=== PATIENT | female | born 1940 | race Caucasian/White ===

== ENCOUNTER 2018-09-06 05:28 | Day surgery (SDC) | payer OTHER ==
[~2018-09-06] VITALS: Ht 170.2 cm; Wt 67.1 kg
[~2018-09-06 05:28] MED LIST: ESTRADIOL42.5 GM VAG; FOSAMAX 70 MG T70 M1 PO; FOSAMAX 70 MG T70 MG PO; GLUCOSAMINE CH1 EAC7 PO; MAXALT MLT ODT10 M1 PO; NASONEX17 GM NASAL; NORCO 5-325 TA1 EACH PO; PANTANASE; PROBIOTIC1 EAC3 PO; PROMS25 WY RECTAL; VERAMYST10 GM SPRAY; VITAMIN D1000 UNI1 PO; VITAMINC500 PO
[2018-09-06 06:33] VITALS: BP 114/80
--- NOTE | 2018-09-06 07:15 | H ---
[facility] [place] [address] HISTORY AND PHYSICAL Name: EVI JUAREZ Room #: 150-6 [facility]..#: [id number] Admission: 09/06/18 ������������������ Attend Phys: Dario Abdi MD Discharge: ������������������ Date of : 44 Report #: [id number] THIS REPORT FOR: //name// CC: Tao Abdi Physician staff ANTICIPATED DATE OF SURGERY: 09/06/2018. CHIEF COMPLAINT: Recurrent qyrnz-nx-csncfrr sinusitis. HISTORY OF PRESENT ILLNESS: This is a 77-year-old female with a long-standing history of chronic rhinosinusitis, having had multiple sinus surgeries in the past. She had been doing relatively well, having last been seen in 05/2016, at which time, she was found to have somewhat unstable examination. She returned in 04/2018 with wodwk-ha-gxgppwk rhinosinusitis with some worsening appearance to her nasal anatomy. She seemed to do relatively well until July of this year, when she began to experience a one-month history of daily frontal sinus pressure and headaches. She did seem to get some relief with her anti-inflammatories and migraine medicines, but a CT scan was obtained at that time. CT scans noted substantial opacification of the ethmoids and the frontal sinuses. Based on this, she was treated with several-week history of oral antibiotics along with oral steroids. Her symptoms recurred rather rapidly on completion of therapy, so she was placed on another 3-week course of therapy with a followup CT scan. The followup CT scan did show some level of improvement in the maxillary sinuses and the ethmoid disease on the left, but still had rather substantial left frontal sinusitis. I discussed the roles of continued medical management versus revision of sinus surgery and she, at that point, initially decided not wanting to pursue sinus surgery, but then later on changed her mind and wishes to pursue revision surgery at this time. Plan will be for revision sinus surgery, as noted above. ALLERGIES TO MEDICATION: None. MEDICATIONS ON ADMISSION: Alprazolam 0.5 mg once a day, estradiol vaginal cream as needed, Flonase nasal steroid spray, oxybutynin chloride 5 mg daily, Pulmicort inhaler on a p.r.n. basis, rizatriptan 10 mg tablet once a day as needed for headache and zolpidem 5 mg once a day. PAST MEDICAL AND SURGICAL HISTORY: Above-mentioned sinus surgery along with hysterectomy. FAMILY HISTORY: Noncontributory. REVIEW OF SYSTEMS: Otherwise, unremarkable aside from the above-mentioned headache history. [address] [address] HISTORY AND PHYSICAL Name: EVI JUAREZ Room #: [address] [place] [address] M.R.#: [id number] Admission: 09/06/18 ������������������ Attend Phys: Dario Abdi MD Discharge: ������������������ Date of : 44 Report #: [id number] PHYSICAL EXAMINATION: VITAL SIGNS: Height of 5 feet 4 inches, weight of 150 pounds. HEENT: Notable for polyposis noted mostly in the left ethmoid defect, more patent appearance to the right nasal ethmoid area. Oral cavity and oropharynx appear to be unremarkable. ASSESSMENT: History of recurrent rhinosinusitis. PLAN: Plan will be for revision endoscopic sinus surgery, left and right ethmoid and frontal regions, possible balloon frontal sinuplasty. ��������������������������������������������� <ELECTRONICALLY SIGNED> ���������������������������������������� By: Dario Abdi MD ��������������������������������������������� 09/06/18 0715 1145 1212 Dario Abdi MD /nt
--- NOTE | 2018-09-10 13:08 | PATH ---
[facility] [address] [place] [address] PATHOLOGY RPT PROCEDURE Name: ALISIA JUAREZ Room #: DEP [facility]..#: [id number] ������������������ Admission: 09/06/18 ������������������ Date of : 44 Discharge: 09/06/18 Report #: [id number] Path Case #: [id number] [facility] Accession Number: [id number] . 01 Material submitted: . BILATERAL SINUS CONTENTS . 01 Clinical history: . Chronic sinusitis . 02 Diagnosis: Bilateral sinus contents: - Moderate dense chronic inflammation. - No increase in eosinophils within the infiltrate. - Fragments of reactive bone. (IUV:adryan; 09/09/2018) QMS/09/09/2018 . 02 Electronically signed: . Chitra Monterroso MD, Pathologist NPI- [id number] . 01 Gross description: . The specimen is received in formalin, labeled "Alisia Juarez, bilateral sinus contents". Received are multiple segments of pale black membranous tissue admixed with minute fragments of possible bone and blood coagulum measuring 1.5 x 0.9 x 0.1 cm in aggregate dimensions. The specimen is filtered and entirely submitted in cassette A1, following light decalcification. (CAA; 09/06/2018) QAC/QAC . 02 Pathologist provided ICD-10: J32.9 . 02 CPT . 685134, 368439 Specimen Comment: A courtesy copy of this report has been sent to Specimen Comment: [phone], . Specimen Comment: Report sent to / DR SUE Performed at: [address] [id number] MD Todd Lind MD Phone: [phone] Performed at: [address] [id number] [address] [address] PATHOLOGY RPT PROCEDURE Name: ALISIA JUAREZ Room #: [place] [facility] [place]#: [id number] ������������������ Admission: 09/06/18 ������������������ Date of : 42 Discharge: 09/06/18 Report #: [id number] Path Case #: [id number] MD Chitra Monterroso MD Phone: [phone]
--- NOTE | 2018-09-13 07:25 | O ---
[facility] [place] [address] OPERATIVE REPORT Name: EVI JUAREZ Room #: DEP [facility]..#: [id number] Admission: 09/06/18 ������������������ Attend Phys: Dario Abdi MD Discharge: 09/06/18 ������������������ Date of : 44 Report #: [id number] THIS REPORT FOR: //name// CC: Tao Abdi Physician staff DATE OF SERVICE: 09/06/2018 PREOPERATIVE DIAGNOSES: Frontal sinusitis, ethmoid sinusitis, nasal polyps. POSTOPERATIVE DIAGNOSES: Frontal sinusitis, ethmoid sinusitis, nasal polyps. PROCEDURE: 1. Revision endoscopic right ethmoidectomy. 2. Right frontal sinus exploration with frontal sinus balloon sinuplasty. 3. Placement of a contour stent. 4. Left frontal sinus exploration with frontal sinus dilation and placement of a contour stent. 5. Zipongo image guidance system usage. FINDINGS: Moderate polyposis is noted around the anterior left ethmoid/agger nasi cell obstructing and obscuring the left frontal sinus tract, moderate polyposis and scarifications noted in the right ethmoid defect. A thick inspissated mucus was noted in the ethmoid mucosa as well as was removed from the right frontal sinus area. TECHNIQUE: After obtaining consent, she was brought to the operating suite, appropriate timeout was performed. General oral LMA anesthesia was obtained. The bed was turned 90 degrees. She was placed in slight head up position. Nose was prepped and draped in the usual sterile fashion. Cottonoid soaked with Afrin were placed in each side of the naris. 1% Xylocaine 1:100,000 epinephrine was injected in the anterior root of the middle turbinate remnant at the lateral nasal wall bilaterally. A 3 mL local anesthetic was used. Cottonoids were removed. The left nasal passage was addressed first. Using either a 0 or 30-degree scope (alternated back and forth between these), the left middle meatal region was identified. The polyps in the agger nasi area were identified. These were removed with a 12-degree microdebrider blade to access the frontal sinus recess region. Using a frontal sinus probe on the LandmarX guidance system, I was able to identify the area. Visually, this area had polypoid mucosa around the entrance. The frontal sinus balloon was then advanced under direct visualization up into the frontal sinus duct and light confirmation was obtained. The area was then dilated serially x 3 with the balloon to full dilation. It was then removed. At that point, he was able to [address] [address] OPERATIVE REPORT Name: EVI JUAREZ Room #: [facility] [place] [place].#: [id number] Admission: 09/06/18 ������������������ Attend Phys: Dario Abdi MD Discharge: 09/06/18 ������������������ Date of : 44 Report #: [id number] take the LandmarX guided curved frontal sinus suction and introduced it up into this area without any difficulty. There was no inspissated mucus in the area. A 70-degree arthroscope was then taken to confirm that the frontal sinus tract was widely patent. There is no polypoid debris obstructing the opening into the frontal sinus recess. I then took a contour stent and placed it under direct visualization to this area to keep this area open due to the fact there was polypoid debris that had been found around the opening. A cottonoid was placed over this area for hemostasis. I turned my attention to the right side where again visualization of the middle meatus revealed the above findings with substantial polypoid debris using a 12-degree microdebrider. At completion, revision ethmoidectomy was then performed in an anterior to posterior fashion. In the mid portion of the ethmoid area, I came across some thick inspissated mucus, continue to clean this out up into the fovea returning anteriorly near the frontal sinus region. Again, this area was significantly obscured with polypoid mucosa. It was not patent to admit a frontal sinus suction; however, using the image-guided probe, I was able to advance the probe up into the frontal sinus duct. I then used frontal sinus balloon dilating this twice with good effect. Upon removal of the balloon, I was unable to take the frontal sinus suction up in this area and removed a significant amount of thick inspissated but clear appearing mucus from the area. I then visually confirmed the patency with a 70-degree scope. I then placed a contour stent in this area of frontal sinus duct opening as well and confirmed its adequate placement. I then confirmed good hemostasis in the revision ethmoid area and removal of most of the polypoid debris in this area as well. A single piece of Xerogel was then cut in half and placed in the ethmoid rim defect on the right side. The left side was checked for hemostasis and found to be adequate, so no packing was placed on the site. The nasopharynx was suctioned free of secretions. She was allowed to awaken from anesthesia, went to recovery room in stable condition. ESTIMATED BLOOD LOSS: 15 mL. ��������������������������������������������� <ELECTRONICALLY SIGNED> ���������������������������������������� By: Dario Abdi MD ��������������������������������������������� 09/13/18 0725 1116 1422 Dario Abdi MD /nt
== END 2018-09-06 12:00 | disposition home or self-care (01) ==
LOC: OR 05:28 → TBA 05:28 → OR 10:30 → EDSTATUS 14:41 → OR 14:58
DX: J32.1 Chronic frontal sinusitis (principal); J32.2 Chronic ethmoidal sinusitis; J33.9 Nasal polyp, unspecified; G43.909 Migraine, unspecified, not intractable, without status migrainosus; M81.0 Age-related osteoporosis without current pathological fracture; Z87.891 Personal history of nicotine dependence; Z90.710 Acquired absence of both cervix and uterus; Z98.890 Other specified postprocedural states; Z79.899 Other long term (current) drug therapy
CPT/HCPCS: 31296; 31299; 31255; 61782; C2625; 50010; 50101; 50286; 50386; 50398; 50573; 50849; 50993; 52290; 52291; 53618; 62110; 62900; 64037; 70005